=== PATIENT | female | born 1935 | race Caucasian/White ===

== ENCOUNTER 2021-01-27 22:20 | Emergency (ER) | payer MEDICARE, OTHER, SELFPAY ==
--- NOTE | ~2021-01-27 | CT_ITS ---
EXAMINATION: CT brain wo con, CT cervical spine wo con EXAM DATE: 01/27/2021 22:44 INDICATION: Multiple falls today, unsteady gait. Head injury. TECHNIQUE: Spiral CT of the head was performed without contrast. Axial, coronal and sagittal images were reviewed. Spiral CT of the cervical spine was performed without contrast. Axial images were rev iewed. Coronal and sagittal reformatted images were also reviewed. The dose-length product (DLP) fo r this examination was 681.00 (accession [id number]), 210.56 (accession [id number]) mGy-cm. The exposure was tailored according to patient size, and iterative reconstruction (ASIR) was used as additional dose reduction technique. There is no prior study for comparison. FINDINGS: HEAD CT: Mild motion artifact. There is no acute intraparenchymal hemorrhage. No evidence of intrapa renchymal brain mass lesion. No evidence of acute infarction. There is moderate to severe periventri cular and subcortical hypodensity, nonspecific but probably related to small vessel ischemic disease. There is moderate prominence of the sulci and ventricles related to cerebral atrophy. There is no mass effect or midline shift. There is no obstructive hydrocephalus suspected. There are no extra -axial collections. There are no acute calvarial fractures. Patient has had bilateral ocular lens s urgery. Soft tissue is unremarkable. The visualized sinuses and mastoid air cells are well aerated. Hyperostosis frontalis. CERVICAL CT: Advanced cervical facet arthropathy. Mild to moderate disc disease. There is no evidence of acute cervical fracture. The odontoid process is intact. Pre-dens space is normal. Prevertebra l soft tissue is normal. There are no soft tissue abnormalities identified. There is no disc space widening or traumatic vertebral body subluxation suspected. A detailed level by level evaluation of spondylosis can be added as addendum if requested. IMPRESSION: 1. No acute intracranial findings or cervical fracture. 2. Age-related intracranial findings. Reviewed, dictated and finalized at location G. CTOR OF ENROLLMENT IMPRESSION: 1. No acute intracranial findings or cervical fracture. 2. Age-related intracranial findings.
[2021-01-27 22:20] VITALS: BP 120/65; PULSE 66; RESP 18; TEMP 36.5; O2SAT 98
--- NOTE | 2021-01-27 22:23 | ECG_ITS ---
Measurements Intervals [place] Rate: 67 P: 64 [place]: 167 QRS: -42 QRSD: 94 T: 64 QT: 432 QTc: 457 Interpretive Statements SINUS RHYTHM WITH SINUS ARRHYTHMIA LEFT AXIS DEVIATION INCOMPLETE RIGHT BUNDLE BRANCH BLOCK BORDERLINE R WAVE PROGRESSION, ANTERIOR LEADS BASELINE ARTIFACT- I, II, III, AVR BORDERLINE ECG Electronically Signed On 01-28-2021 6:41:37 SCRAP CUTTER by Oscar Cabrera D.O.
--- NOTE | 2021-01-27 22:23 | ED.FALL ---
HPI - Fall General Chief Complaint: Fall Stated Complaint: UNSTEADY GAIT WITH MULTIPLE GLF Time Seen by Provider: 01/27/21 22:23 Source: patient Mode of arrival: EMS Limitations: dementia History of Present Illness HPI Narrative: Patient is an 85-year-old with a history of Alzheimer dementia, hypertension, hyperlipidemia, resides at [facility] care unit, presenting to the emergency department for evaluation of frequent falls over the past week with head injury. Staff were worried that the patient may have a urinary tract infection. Patient at the time of assessment is awake, alert, oriented to person, not to place or time. Apparently this is her baseline. Denies any reported pain. Appears pleasant and in no acute distress. Additional history limited secondary to dementia. Related Data Home Medications Medication Instructions Recorded Confirmed amlodipine 01/27/21 atorvastatin 01/27/21 clopidogrel 01/27/21 donepezil mg 01/27/21 fluorometholone drp 01/27/21 hydroxyzine HCl 25 mg PO PRN PRN 01/27/21 metoprolol succinate PO 01/27/21 quinapril mg 01/27/21 sertraline 25 mg PO DAILY 01/27/21 Allergies Allergy/AdvReac Type Severity Reaction Status Date / Time meperidine [From Demerol] Allergy Rash Verified 01/27/21 22:25 penicillin V Allergy Rash Verified 01/27/21 22:25 Review of Systems Review of Systems: ROS unobtainable: Yes unobtainable due to medical condition [facility] Social History Social History (Updated 01/27/21 @ 22:52 by Tracy Galindo MD) Alcohol intake: never Substance use: never Gender identity (if verbalized by the patient): Female Exam Narrative: GENERAL: Awake, alert, pleasant, no acute distress HEAD: Normocephalic, atraumatic. EYES: 2 + PERRLA and EOMI. ENT: Nares clear, no rhinorrhea or epistaxis. Mucous membranes moist. NECK: Supple. No grimace or reported pain with palpation of cervical spine. CHEST: No respiratory distress, breathing even and non labored. No chest wall tenderness, crepitus or ecchymoses. HEART: Regular rate, sinus rhythm ABDOMEN:Non distended, non tender EXTREMITIES: Normal range of motion. No edema. Left knee replacement incision scar, well healed. SKIN: Warm, dry, no rash. NEURO:No focal deficits. Alert and oriented x1. Moving all extremities spontaneously. No focal deficits. Course Vital Signs Vital signs: Vital Signs Temperature 36.5 C 01/27/21 22:20 Pulse Rate 66 01/27/21 22:20 Respiratory Rate 18 01/27/21 22:20 Blood Pressure 120/65 01/27/21 22:20 Pulse Oximetry 98 01/27/21 22:20 Temperature 36.5 C 01/27/21 22:20 Pulse Rate 66 01/27/21 22:20 Respiratory Rate 18 01/27/21 22:20 Blood Pressure 120/65 01/27/21 22:20 Pulse Oximetry 98 01/27/21 22:20 MDM - Fall MDM Narrative Medical decision making narrative: Patient presented for evaluation of frequent falls. Staff at the facility was concerned the patient may have an injury or infection. At the time of assessment, ABCs are intact and vital signs are stable. Patient is alert to person, which is her baseline. No focal deficits or evidence of trauma found on exam. Extremity exam is reassuring, no upper extremity injuries, no tenderness to palpation of the bilateral hips or pelvis. No acute lower extremity injuries found on exam. Obtain CT head, cervical spine which are normal without acute injury. Patient laboratory work-up is reassuring. Patient does not have significant evidence of a urinary tract infection. There is no nitrate, no significant leukocyte esterase. There is small amount of white blood cells present but given the patient's presenting symptoms I think that we can await urine culture if it were to reflex. At this point, patient does not require treatment for this urine sample. Patient was discharged back to facility in stable condition. Differential Diagnosis Differential diagnosis: Likely other (UTI, Electrolyte abnormality, Dehydration, Intr
--- NOTE | 2021-01-27 22:40 | PC.NURSE ---
Pt to CT scan via stretcher.
[2021-01-27] MEDS: SODIUM CHLORIDE 0.9% IV 1,000 ML 999 ML IV CONT (22:46)
[2021-01-27 22:54] LABS: Basophils Absolute Auto 0.1 K/mm3 (0.0-0.1); Basophils Percent Auto 0.5 % (0.2-1.2); Eosinophils Absolute Auto 0.2 K/mm3 (0-0.3); Eosinophils Percent Auto 2.5 % (0-4.4); Hematocrit 39.8 % (37.0-47.0); Hemoglobin 12.9 g/dL (12.0-15.0); Immature Granulocyte Absolute 0.04 K/mm3 (0.00-0.031); Immature Granulocyte Percent A 0.4 % (0-0.5); Lymphocytes Absolute Auto 1.05 K/mm3 (0.9-3.2); Lymphocytes Percent Auto 10.8 % (18.3-44.2); Mean Corpuscular HGB Conc 32.4 g/dl (32-36); Mean Corpuscular Hemoglobin 31.3 pg (26-34); Mean Corpuscular Volume 96.6 fl (80-100); Mean Platelet Volume 9.4 fl (7.4-10.4); Monocytes Percent Auto 10.1 % (2.6-8.5); Neutrophils Absolute Auto 7.4 K/mm3 (1.3-6.7); Neutrophils Percent Auto 75.7 % (45.5-73.1); Platelet Count Result 241 k/mm3 (150-375); Red Blood Count 4.12 M/mm3 (4.2-5.4); Red Cell Distribution Width 13.5 % (11.5-14.5); White Blood Count 9.7 K/mm3 (4.5-10.0)
[2021-01-27 23:13] LABS: Alanine Aminotransferase 22 U/L (4-35); Albumin Level 4.4 g/dL (3.5-5.1); Alkaline Phosphatase 107 U/L (38-126); Anion Gap 9 mmol/L (8-16); Aspartate Amino Transferase 34 U/L (14-36); Bilirubin,Total 1.5 mg/dL (0.2-1.3); Blood Urea Nitrogen 29 mg/dL (7-17); Calcium 9.6 mg/dL (8.4-10.2); Carbon Dioxide 26 mmol/L (22-30); Chloride 102 mmol/L (98-107); Estimated CRCL calculation 29 ml/min; Estimated Glomerular Filt Rate 33; Glucose 122 mg/dL (65-110); Potassium 4.4 mmol/L (3.4-5.0); Sodium 137 mmol/L (137-145)
[2021-01-27 23:31] LABS: Add Urine Microscopic? YES; Appearance Urine Cloudy (Clear); Bilirubin Urine Negative (Negative); Color Urine Yellow (Yellow); Glucose Urine UA Negative (Negative); Ketones Urine Negative (Negative); Leukocyte Esterase Ur Negative LEU/UL (Negative); Mucus Urine Rare /lpf; Nitrate Urine Negative (Negative); Protein Urine 1+ mg/dL (Negative); RBC Urine 21-50 /hpf (0-2); Specific Grav Ur 1.024 (1.001-1.035); Squamous Epithelial Cell Urine Few /hpf (Few); Urobilinogen Urine Negative mg/dL (<2.0)
--- NOTE | 2021-01-27 23:33 | PC.NURSE ---
Spoke to Tracy - daughter and POA on phone and discussed POC for pt. No new updates/results at this time - will keep informed.
[2021-01-27 23:38] LABS: Blood Urine Negative (Negative)
[2021-01-28 00:36] VITALS: BP 124/60; PULSE 64; RESP 16; O2SAT 95
--- NOTE | 2021-01-28 00:37 | PC.NURSE ---
SPOKE TO DAUGHTER - AMRIT/GARLAND AND GAVE FULL D/C INSTRUCTIONS AND RESULTS ON D/C PAPERWORK DUE TO PT UNABLE TO COMPREHEND. PT AWAITING EMS TO TRANSPORT BACK TO FACILITY. PT IS ALERT TO VERBAL STIMULI W/ EQUAL CHEST RISE AND FALL - ON TELE MONITOR W/ VSS AND RESTING. NO ACUTE DISTRESS NOTED. ATTEMPTED CALL TO [facility] FOR PT UPDATE REPORT AND NO ANSWER AT THIS TIME, PER WEBSITE PHONE LINE CLOSES AT 0000.
--- NOTE | 2021-01-28 01:59 | PC.NURSE ---
[facility]: CALLED AT 0157 FOR UPDATE OF ARRIVAL TIME. NEW ETA: [id number]
[2021-01-28 02:58] VITALS: BP 128/68; PULSE 81; RESP 18; O2SAT 97
== END 2021-01-28 03:52 ==
PROVIDERS: Emergency Provider Emergency Medicine; PCP Emergency Medicine
DX: S09.90XA Unspecified injury of head, initial encounter (principal); G30.9 Alzheimer's disease, unspecified; F02.80 Dementia in other diseases classified elsewhere, unspecified severity, without behavioral disturbance, psychotic disturbance, mood disturbance, and anxiety; I10 Essential (primary) hypertension; E78.5 Hyperlipidemia, unspecified; R29.6 Repeated falls; I45.10 Unspecified right bundle-branch block; R94.31 Abnormal electrocardiogram [ECG] [EKG]; W19.XXXA Unspecified fall, initial encounter; R82.998 Other abnormal findings in urine
CPT/HCPCS: 36415; 51701; 70450; 72125; 80053; 81001; 85025; 87086; 93005; 96360; 96361; 99284; J7030

== ENCOUNTER 2021-02-22 09:37 | Emergency (ER) | payer MEDICARE, OTHER, SELFPAY ==
--- NOTE | ~2021-02-22 | CT_ITS ---
EXAMINATION: CT cervical spine wo con EXAM DATE: 02/22/2021 10:55 INDICATION: Fall. Head injury. TECHNIQUE: Spiral CT of the cervical spine was performed without contrast. Axial images were reviewe d. Coronal and sagittal reformatted images cervical spine were also reviewed. The dose-length produc t (DLP) for this examination was 207.01 mGy-cm. The exposure was tailored according to patient size (auto mA exposure control), and iterative reconstruction (ASIR) was used as additional dose reduction technique. Comparison is made to prior examination from 02/01/2021. FINDINGS: Lung apices are clear. There is no evidence of acute cervical fracture. The odontoid proce ss is intact. Pre-dens space is normal. Prevertebral soft tissue is normal. There are no soft tiss ue abnormalities identified. There is no disc space widening or traumatic vertebral body subluxation suspected. Mild to moderate cervical disc disease. Moderate to severe facet arthropathy. A detaile d level by level evaluation of spondylosis can be added as addendum if requested. IMPRESSION: 1. No acute cervical fracture. 2. Cervical spondylosis unchanged. Reviewed, dictated and finalized at location A. ENT ACCESS COORDINATOR
--- NOTE | ~2021-02-22 | CT_ITS ---
EXAMINATION: CT brain wo con EXAM DATE: 02/22/2021 10:54 INDICATION: Fall, frontal head injury. TECHNIQUE: Spiral CT of the head was performed without contrast. Axial, coronal and sagittal images were reviewed. The dose-length product (DLP) for this examination was 681.00 mGy-cm. The exposure w as tailored according to patient size, and iterative reconstruction (ASIR) was used as additional dos e reduction technique. Comparison is made to prior examination from 01/27/2021. FINDINGS: There is no acute intraparenchymal hemorrhage. No evidence of intraparenchymal brain mass lesion. No evidence of acute infarction. Please note that initial head CT has limited sensitivity f or small or acute infarctions. There is moderate to severe periventricular and subcortical hypodensit y, nonspecific but probably related to small vessel ischemic disease. There is moderate to severe p rominence of the sulci and ventricles related to cerebral atrophy. There is intracranial carotid ar teriosclerosis. There are no extra-axial collections. There is no mass effect or midline shift. Ayan dorantes has had bilateral ocular lens surgery. Small right frontal, moderate sized right posterior sca lp contusion/hematomas. The visualized sinuses and mastoid air cells are well aerated. IMPRESSION: 1. No acute intracranial findings. 2. Chronic age related findings. 3. Scalp contusions/hematomas. Reviewed, dictated and finalized at location A. ARDER OPERATOR
--- NOTE | ~2021-02-22 | XR_ITS ---
EXAMINATION: XR chest 1V portable EXAM DATE: 02/22/2021 10:58 INDICATION: Fall TECHNIQUE: Portable AP frontal chest x-ray was obtained. There is no prior study for comparison. FINDINGS: There is no focal air space disease. There are no pleural effusions. The cardiothymic lala [place]ouette is normal. There is no pneumothorax. There are no osseous or soft tissue abnormalities in t his skeletally immature patient. Lungs have normal volume. There is aortic arteriosclerosis. There are left axillary surgical clips. There is 1 cm sclerotic focus in the left humeral head, probably [place]. Right upper quadrant surgical clips. IMPRESSION: Chronic chest findings as above. Reviewed, dictated and finalized at location A. NG CREW
--- NOTE | ~2021-02-22 | XR_ITS ---
EXAMINATION: XR pelvis 1-2V EXAM DATE: 02/22/2021 10:58 INDICATION: Fall. TECHNIQUE: Pelvis frontal projection(s) obtained and reviewed. There is no prior study for compariso n. FINDINGS: There are no acute pelvic fractures or dislocations identified. There is no subcutaneous g as. The soft tissue is unremarkable. There are no radiopaque foreign bodies. There is moderate b ilateral hip primary osteoarthritis. IMPRESSION: 1. Pelvis x-ray exam without acute osseous findings. Reviewed, dictated and finalized at location A. ING INSTRUCTOR
[2021-02-22 09:46] VITALS: BP 141/77; PULSE 69; RESP 18; TEMP 36.6; O2SAT 98
--- NOTE | 2021-02-22 09:48 | ED.FALL ---
HPI - Fall General Chief Complaint: Fall Stated Complaint: fall Source: RN notes reviewed History of Present Illness HPI Narrative: Patient presents emergency department from [facility] via EMS for fall. Patient with history of dementia had seen approximately 50 minutes prior to was found on the floor patient unable to give full history of what happened. Patient noted to have contusion on forehead she denies any pain at this time she is awake alert x1 denies any chest pain shortness of breath abdominal pain nausea or vomiting Related Data Home Medications Medication Instructions Recorded Confirmed amlodipine 01/27/21 atorvastatin 01/27/21 clopidogrel 01/27/21 donepezil mg 01/27/21 fluorometholone drp 01/27/21 hydroxyzine HCl 25 mg PO PRN PRN 01/27/21 metoprolol succinate PO 01/27/21 quinapril mg 01/27/21 sertraline 25 mg PO DAILY 01/27/21 atorvastatin [Lipitor] 20 mg PO 02/22/21 Allergies Allergy/AdvReac Type Severity Reaction Status Date / Time meperidine [From Demerol] Allergy Rash Verified 02/22/21 09:53 penicillin V Allergy Rash Verified 02/22/21 09:53 Review of Systems Review of Systems: Gen.: Denies fevers or chills Eyes: Denies eye pain or visual change ENT: Denies congestion Respiratory: Denies shortness of breath CV: Denies chest pain GI: Denies abdominal pain nausea, emesis Musculoskeletal: Denies back pain or muscle pain Neuro: Denies headache Skin: Denies rash Except as documented, all other systems reviewed and negative COUNTS INCLUDE 234 BEDS AT THE [facility] Past Medical History Medical History (Updated 02/22/21 @ 11:33 by Neto Stewart DO) Dementia Hypertension Social History Social History (Updated 02/22/21 @ 09:49 by Neto Stewart DO) Smoking status: Never smoker Alcohol intake: never Substance use: never Gender identity (if verbalized by the patient): Female Exam Narrative: APPEARANCE: No acute distress, nontoxic, resting in bed EYES: EOMI, PERRL HEENT: Normocephalic, area of swelling and ecchymosis over right forehead and over posterior superior scalp, no facial tenderness Neck c-collar present no midline tenderness palpation RESPIRATORY: No respiratory distress Clear to auscultation bilaterally with no rhonchi wheezing or rales. CARDIOVASCULAR: Regular rate and rhythm without murmurs rubs or gallops. ABDOMINAL: Soft, nontender, nondistended, no rebound or guarding MUSCULOSKELETAl: Moves all extremities. No clubbing, cyanosis or edema. No tenderness of the bilateral upper and lower extremities NEURO: Awake and alert x 1. Following commands, speech normal, no focal deficits SKIN:: Warm, dry. No rashes lesions or abrasions PSYCHIATRIC: Normal affect/mood, Course Course Emergency Course: Patient will get up and ambulate in ED with no difficulty Discussed with patient results of workup and diagnosis. Discussed need for follow-up with primary care, proper use of medication, and reasons to return to the emergency department. Patient understands and agrees to current treatment plan Vital Signs Vital signs: Vital Signs Temperature 97.8 F 02/22/21 09:46 Pulse Rate 69 02/22/21 09:46 Respiratory Rate 18 02/22/21 09:46 Blood Pressure 141/77 H 02/22/21 09:46 Pulse Oximetry 98 02/22/21 09:46 Temperature 97.8 F 02/22/21 09:46 Pulse Rate 69 02/22/21 09:46 Respiratory Rate 18 02/22/21 09:46 Blood Pressure 141/77 H 02/22/21 09:46 Pulse Oximetry 98 02/22/21 09:46 MDM - Fall Imaging Data Radiologist's impression: ITS Impressions Head CT 02/22/21 10:58 IMPRESSION: 1. No acute intracranial findings. 2. Chronic age related findings. 3. Scalp contusions/hematomas. Cervical Spine CT 02/22/21 10:59 IMPRESSION: 1. No acute cervical fracture. 2. Cervical spondylosis unchanged. Chest X-Ray 02/22/21 11:02 IMPRESSION: Chronic chest findings as above. Pelvis X-Ray 02/22/21 11:16 IMPRESSION: 1. Pelvis x-ray exam wit
--- NOTE | 2021-02-22 11:43 | PC.NURSE ---
Ambulated in halls without difficulty.
== END 2021-02-22 11:43 ==
PROVIDERS: Emergency Provider Emergency Medicine; PCP Nurse Practitioner Family
DX: S00.83XA Contusion of other part of head, initial encounter (principal); F03.90 Unspecified dementia, unspecified severity, without behavioral disturbance, psychotic disturbance, mood disturbance, and anxiety; I10 Essential (primary) hypertension; M47.812 Spondylosis without myelopathy or radiculopathy, cervical region; W19.XXXA Unspecified fall, initial encounter
CPT/HCPCS: 70450; 71045; 72125; 72170; 99284

== ENCOUNTER 2021-02-26 22:40 | Emergency (ER) | payer MEDICARE, OTHER, SELFPAY ==
--- NOTE | ~2021-02-26 | CT_ITS ---
EXAMINATION: CT brain wo con, CT cervical spine wo con EXAM DATE: 02/26/2021 23:33 (accession [id number]), 02/26/2021 23:34 (accession [id number]) INDICATION: Head injury. Fall. Hx Of Dementia. TECHNIQUE: Spiral CT of the head was performed without contrast. Axial, coronal and sagittal images were reviewed. Spiral CT of the cervical spine was performed without contrast. Axial images were rev iewed. Coronal and sagittal reformatted images were also reviewed. The dose-length product (DLP) fo r this examination was 681.00 mGy-cm. The exposure was tailored according to patient size, and itera tive reconstruction (ASIR) was used as additional dose reduction technique. There is no prior study for comparison. FINDINGS: HEAD CT: There is no acute intraparenchymal hemorrhage. No evidence of intraparenchymal brain mass lesion. No evidence of acute infarction. 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 There is mod erate periventricular and subcortical hypodensity, nonspecific but probably related to small vessel i schemic disease. There is moderate prominence of the sulci and ventricles related to cerebral atrop hy. There is no mass effect or midline shift. There is no obstructive hydrocephalus suspected. Th ere are no extra-axial collections. There are no acute calvarial fractures. Patient has had bilater al ocular lens surgery. There is right posterior scalp contusion, hematoma. The visualized sinuses a nd mastoid air cells are well aerated. CERVICAL CT: There is no evidence of acute cervical fracture. The odontoid process is intact. Pre- dens space is normal. Prevertebral soft tissue is normal. There are no soft tissue abnormalities id entified. There is no disc space widening or traumatic vertebral body subluxation suspected. There is advanced cervical arthropathy. A detailed level by level evaluation of spondylosis can be added a s addendum if requested. IMPRESSION: 1. No acute intracranial findings or cervical fracture. 2. Right posterior scalp contusion/hematoma. No underlying fracture. 3. Age-related intracranial findings. 4. Cervical spondylosis. Reviewed, dictated and finalized at location A. ER MARINA IMPRESSION: 1. No acute intracranial findings or cervical fracture. 2. Right posterior scalp contusion/hematoma. No underlying fracture. 3. Age-related intracranial findings. 4. Cervical spondylosis.
[2021-02-26 22:45] VITALS: TEMP 37
[2021-02-26 22:46] VITALS: BP 156/88; PULSE 84; RESP 16; O2SAT 99
--- NOTE | 2021-02-26 23:10 | ED.HEATRA ---
HPI - Head Injury General Chief complaint: Head Injury Stated complaint: fall with head injury Time Seen by Provider: 02/26/21 22:45 Source: EMS Mode of arrival: EMS Limitations: dementia History of Present Illness HPI Narrative: Patient is an 85-year-old female brought in by EMS from [facility] after a ground-level fall. According to EMS patient was walking and fell hitting her head against the wall. Denies any loss of consciousness. EMS states that patient was able to stand up and transfer to the ambulance cot. is at bedside and states that she has a history of falls and has increased over the past few weeks. Patient has dementia and unable to give any history. Related Data Home Medications Medication Instructions Recorded Confirmed amlodipine 01/27/21 atorvastatin 01/27/21 clopidogrel 01/27/21 donepezil mg 01/27/21 fluorometholone drp 01/27/21 hydroxyzine HCl 25 mg PO PRN PRN 01/27/21 metoprolol succinate PO 01/27/21 quinapril mg 01/27/21 sertraline 25 mg PO DAILY 01/27/21 atorvastatin [Lipitor] 20 mg PO 02/22/21 Allergies Allergy/AdvReac Type Severity Reaction Status Date / Time meperidine [From Demerol] Allergy Rash Verified 02/26/21 22:45 penicillin V Allergy Rash Verified 02/26/21 22:45 Review of Systems Review of Systems: ROS unobtainable: Yes other (Dementia) [facility] Past Medical History Medical History Dementia Hypertension Social History Social History Smoking status: Never smoker Alcohol intake: never Substance use: never Gender identity (if verbalized by the patient): Female Exam Const: General: healthy appearing, no acute distress, alert and confusion; No ill appearing Orientation/consciousness: oriented to person, oriented to place, oriented to time, patient oriented x3 and No confusion Limitations: other limitations (Dementia) HENMT: Ears: hearing grossly normal bilaterally, TM normal on the right and TM normal on the left General nose exam: Normal external nose present, Normal nares present and No nasal discharge present Mouth: Yes Normal oral and palatal mucosa present, Yes lip normal, Yes tongue normal and Yes oropharynx normal Throat: posterior oropharynx normal, tonsils normal and uvula midline Other: Right frontal head contusion Eyes: General: appearance normal, both eyes and all related structures Pupils: Equal, round and reactive pupils present EOM: EOMs intact bilaterally Neck: Neck: normal visual inspection, full ROM, no lymphadenopathy and no meningeal signs Chest: Chest palpation & inspection: normal inspection of the chest Resp: Effort & Inspection: normal respiratory effort, able to speak in complete sentences, no respiratory distress and not tachypneic Auscultation: clear to auscultation bilaterally, no crackles, no rales, no rhonchi and no wheezes Cardio: Rate: regular rate Rhythm: regular rhythm GI: Inspection: normal to inspection GI Palp: No abdominal tenderness, Yes Soft to palpation, No Tenderness to palpation present (GI), No Guarding due to palpation present (GI), No Rigid due to palpation and No Rebound tenderness present Auscultation: normal bowel sounds : General: Yes no CVA tenderness Back/Spine/Pelvis: Back: no CVA tenderness Skin: General skin exam: normal color, no rashes or lesions noted, elasticity normal and turgor normal Neuro: General: tone normal, moves all extremities, Normal light touch and pain sensation, no meningeal signs, no focal motor deficits and CN's II-XI intact bilaterally Cranial nerves: Yes Equal, round and reactive pupils present Speech: No Abnormal speech present Sensory Exam: No Sensory deficit (Neuro) Extrem: General: normal to inspection, full ROM and capillary refill normal Psych: Appearance: grossly normal and well kempt Speech and movement: Normal speech and movement pre
[2021-02-27 01:15] VITALS: PULSE 83; RESP 18; O2SAT 98
== END 2021-02-27 01:16 ==
PROVIDERS: Emergency Provider Emergency Medicine; PCP Nurse Practitioner Family
DX: S09.90XA Unspecified injury of head, initial encounter (principal); F03.90 Unspecified dementia, unspecified severity, without behavioral disturbance, psychotic disturbance, mood disturbance, and anxiety; I10 Essential (primary) hypertension; W01.198A Fall on same level from slipping, tripping and stumbling with subsequent striking against other object, initial encounter
CPT/HCPCS: 70450; 72125; 99284

== ENCOUNTER 2021-02-27 22:31 | Emergency (ER) | payer MEDICARE, OTHER, SELFPAY ==
--- NOTE | ~2021-02-27 | XR_ITS ---
EXAMINATION: XR shoulder RT min 2V EXAM DATE: 02/27/2021 23:07 INDICATION: pain status post fall . Initial encounter. TECHNIQUE: The following right shoulder projections obtained: frontal projection with internal rotati on, frontal projection with external rotation, Grashey, and scapular Y view (4+ views). There is no prior study for comparison. FINDINGS: No evidence of right shoulder rotator cuff calcific tendinosis. There is mild glenohume ral joint, moderate acromioclavicular joint primary osteoarthritis. There are no acute fractures or d islocations identified. There is no subcutaneous gas. The soft tissue is unremarkable. There are no radiopaque foreign bodies. IMPRESSION: 1. XR shoulder RT min 2V exam without acute osseous findings. Reviewed, dictated and finalized at location G. OMIC DEVELOPER
--- NOTE | ~2021-02-27 | CT_ITS ---
EXAMINATION: CT brain wo con, CT cervical spine wo con EXAM DATE: 02/27/2021 23:16 INDICATION: Multiple falls, head injury. TECHNIQUE: Spiral CT of the head was performed without contrast. Axial, coronal and sagittal images were reviewed. Spiral CT of the cervical spine was performed without contrast. Axial images were rev iewed. Coronal and sagittal reformatted images were also reviewed. The dose-length product (DLP) fo r this examination was 605.33 (accession [id number]), 173.19 (accession [id number]) mGy-cm. The exposure was tailored according to patient size, and iterative reconstruction (ASIR) was used as additional dose reduction technique. Comparison is made to prior examination from 02/26/2021 (yesterday ). FINDINGS: HEAD CT: There is no acute intraparenchymal hemorrhage. No evidence of intraparenchymal brain mass lesion. No evidence of acute infarction. 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 There is mod erate to severe periventricular and subcortical hypodensity, nonspecific but probably related to smal l vessel ischemic disease. There is moderate prominence of the sulci and ventricles related to cere bral atrophy. There is no mass effect or midline shift. There is no obstructive hydrocephalus susp ected. There are no extra-axial collections. There are no acute calvarial fractures. Patient has h ad bilateral ocular lens surgery. There is right posterior scalp contusion, hematoma. The visualized sinuses and mastoid air cells are well aerated. CERVICAL CT: There is no evidence of acute cervical fracture. The odontoid process is intact. Pre- dens space is normal. Prevertebral soft tissue is normal. There are no soft tissue abnormalities id entified. There is no disc space widening or traumatic vertebral body subluxation suspected. There is advanced cervical arthropathy. A detailed level by level evaluation of spondylosis can be added a s addendum if requested. IMPRESSION: 1. No acute intracranial findings, cervical fracture, or interval change compared to yesterday. 2. Right posterior scalp contusion/hematoma. No underlying fracture. 3. Age-related intracranial findings. 4. Cervical spondylosis. Reviewed, dictated and finalized at location [facility]. BUSTER IMPRESSION: 1. No acute intracranial findings, cervical fracture, or interval change amanuel red to yesterday. 2. Right posterior scalp contusion/hematoma. No underlying fracture. 3. Age-related intracranial findings. 4. Cervical spondylosis.
--- NOTE | ~2021-02-27 | XR_ITS ---
EXAMINATION: XR chest 1V portable EXAM DATE: 02/27/2021 23:07 INDICATION: Cough. TECHNIQUE: Portable AP frontal chest x-ray was obtained. Comparison is made to prior examination from 02/22/2021. FINDINGS: Linear basilar opacities again noted, most consistent with subsegmental atelectasis or scar ring. No evidence of superimposed acute airspace disease. Left axillary surgical clips. There are bon y degenerative changes. There is aortic arteriosclerosis. IMPRESSION: Left basilar linear opacities most consistent with subsegmental scarring or atelectasis. Reviewed, dictated and finalized at location . GRADER IMPRESSION: Left basilar linear opacities most consistent with subsegmental sc arring or atelectasis.
--- NOTE | ~2021-02-27 | XR_ITS ---
EXAMINATION: XR shoulder LT min 2V EXAM DATE: 02/27/2021 23:07 INDICATION: pain status post fall . Initial encounter. TECHNIQUE: The following right shoulder projections obtained: frontal projection with internal rotati on, frontal projection with external rotation, Grashey, and scapular Y view (4+ views). There is no prior study for comparison. FINDINGS: No evidence of right shoulder rotator cuff calcific tendinosis. There is mild glenohumer al joint, moderate acromioclavicular joint primary osteoarthritis. Left humeral bone island. There a re no acute fractures or dislocations identified. There is no subcutaneous gas. The soft tissue is unremarkable. Left axillary surgical clips. IMPRESSION: 1. XR shoulder LT min 2V exam without acute osseous findings. Reviewed, dictated and finalized at location . [employer]
[2021-02-27 22:31] VITALS: BP 170/76; PULSE 85; RESP 17; TEMP 36.9; O2SAT 100
--- NOTE | 2021-02-27 22:39 | ECG_ITS ---
Measurements Intervals [place] Rate: 76 P: 155 GA: 145 QRS: -27 QRSD: 102 T: 142 QT: 384 QTc: 432 Interpretive Statements SINUS OR ECTOPIC ATRIAL RHYTHM BORDERLINE R WAVE PROGRESSION, ANTERIOR LEADS NONSPECIFIC ST & T-WAVE ABNORMALITY- INF/HIGH LAT LEADS BASELINE ARTIFACT- I, II, III, AVR, AVL, AVF, V1-V6 BORDERLINE ECG Electronically Signed On 02-28-2021 6:29:57 ELECTRONIC BENCH TECHNICIAN by Oscar Cabrera D.O.
--- NOTE | 2021-02-27 22:59 | PC.NURSE ---
pt to XRAY and CT scan via stretcher at this time, daughter/POA at bedside
[2021-02-27 23:28] LABS: Basophils Absolute Auto 0.1 K/mm3 (0.0-0.1); Basophils Percent Auto 0.9 % (0.2-1.2); Eosinophils Absolute Auto 0.3 K/mm3 (0-0.3); Eosinophils Percent Auto 3.5 % (0-4.4); Hematocrit 35.2 % (37.0-47.0); Hemoglobin 11.4 g/dL (12.0-15.0); Immature Granulocyte Absolute 0.03 K/mm3 (0.00-0.031); Immature Granulocyte Percent A 0.4 % (0-0.5); Lymphocytes Absolute Auto 1.48 K/mm3 (0.9-3.2); Lymphocytes Percent Auto 18.5 % (18.3-44.2); Mean Corpuscular HGB Conc 32.4 g/dl (32-36); Mean Corpuscular Hemoglobin 31.1 pg (26-34); Mean Corpuscular Volume 96.2 fl (80-100); Mean Platelet Volume 9.2 fl (7.4-10.4); Monocytes Absolute Auto 1.4 K/mm3 (0.1-0.6); Neutrophils Absolute Auto 4.7 K/mm3 (1.3-6.7); Neutrophils Percent Auto 58.7 % (45.5-73.1); Platelet Count Result 201 k/mm3 (150-375); Red Blood Count 3.66 M/mm3 (4.2-5.4); Red Cell Distribution Width 14.4 % (11.5-14.5)
[2021-02-27 23:41] LABS: Alanine Aminotransferase 27 U/L (4-35); Albumin Level 3.7 g/dL (3.5-5.1); Alkaline Phosphatase 52 U/L (38-126); Anion Gap 6 mmol/L (8-16); Aspartate Amino Transferase 33 U/L (14-36); Bilirubin,Total 0.9 mg/dL (0.2-1.3); Blood Urea Nitrogen 21 mg/dL (7-17); Calcium 9.1 mg/dL (8.4-10.2); Carbon Dioxide 27 mmol/L (22-30); Chloride 102 mmol/L (98-107); Estimated CRCL calculation 44 ml/min; Estimated Glomerular Filt Rate 60; Glucose 99 mg/dL (65-110); Potassium 3.9 mmol/L (3.4-5.0); Sodium 135 mmol/L (137-145)
[2021-02-27 23:46] LABS: Add Urine Microscopic? NO; Appearance Urine Clear (Clear); Bilirubin Urine Negative (Negative); Blood Urine Negative (Negative); Color Urine Yellow (Yellow); Glucose Urine UA Negative (Negative); Ketones Urine Negative (Negative); Leukocyte Esterase Ur Negative LEU/UL (Negative); Nitrate Urine Negative (Negative); Protein Urine Negative (Negative); Specific Grav Ur 1.017 (1.001-1.035); Urobilinogen Urine Negative mg/dL (<2.0)
[2021-02-28 00:04] VITALS: BP 167/74; PULSE 80; RESP 19; O2SAT 97
--- NOTE | 2021-02-28 00:04 | ED.GENADULT ---
HPI - General Adult General Chief complaint: Fall Stated complaint: unwitnessed fall, head injury Time Seen by Provider: 02/27/21 22:38 Limitations: dementia History of Present Illness HPI narrative: Patient 85-year-old female presents the emergency department with complaint of fall. Patient has been seen multiple times in the emergency department after frequent falls this week. Patient had an unwitnessed fall at the facility where she lives at and has history of dementia also the family has been discussing with the facility about entering the into hospice care. The patient states she is unsure of what happened and is unable to provide history due to dementia Related Data Home Medications Medication Instructions Recorded Confirmed amlodipine 01/27/21 atorvastatin 01/27/21 clopidogrel 01/27/21 donepezil mg 01/27/21 fluorometholone drp 01/27/21 hydroxyzine HCl 25 mg PO PRN PRN 01/27/21 metoprolol succinate PO 01/27/21 quinapril mg 01/27/21 sertraline 25 mg PO DAILY 01/27/21 atorvastatin [Lipitor] 20 mg PO 02/22/21 Allergies Allergy/AdvReac Type Severity Reaction Status Date / Time meperidine [From Demerol] Allergy Rash Verified 02/26/21 22:45 penicillin V Allergy Rash Verified 02/26/21 22:45 Review of Systems Review of Systems: A 10 system review of systems was completed on the patient and is negative except for what is stated in the HPI. Nursing and ancillary documentation was reviewed. PMFSH Past Medical History Medical History Dementia Hypertension Social History Social History Smoking status: Never smoker Alcohol intake: never Substance use: never Gender identity (if verbalized by the patient): Female Exam Narrative: GENERAL: Well-appearing, well-nourished, and in no acute distress. HEAD: Normocephalic, there is a contusion in the occipital region of the scalp and also in the forehead. EYES: PERRLA and EOMI. ENT: Nares clear, no rhinorrhea or epistaxis. Mucous membranes moist. NECK: Supple. CHEST: Clear to auscultation. No respiratory distress. HEART: Regular rate and rhythm. No murmur heard. Normal peripheral pulses. ABDOMEN: Soft, nontender, nondistended, normal active bowel sounds. EXTREMITIES: Normal range of motion. No edema. There are contusions to bilateral shoulders SKIN: Warm, dry, no rash. NEURO: No focal deficits. Alert pleasantly confused. PSYCH: Normal mood and affect. Course Course Emergency Course: Imaging shows no evidence of acute fracture or hemorrhage Metabolic work-up and infectious work-up shows no evidence of acute findings. Patient will be discharged back to the skilled nursing. Vital Signs Vital signs: Vital Signs Temperature 36.9 C 02/27/21 22:31 Pulse Rate 85 02/27/21 22:31 Respiratory Rate 17 02/27/21 22:31 Blood Pressure 170/76 H 02/27/21 22:31 Pulse Oximetry 100 02/27/21 22:31 Temperature 36.9 C 02/27/21 22:31 Pulse Rate 85 02/27/21 22:31 Respiratory Rate 17 02/27/21 22:31 Blood Pressure 170/76 H 02/27/21 22:31 Pulse Oximetry 100 02/27/21 22:31 Medical Decision Making Vital Signs Vital Signs: Vital Signs Temperature 36.9 C 02/27/21 22:31 Pulse Rate 85 02/27/21 22:31 Respiratory Rate 17 02/27/21 22:31 Blood Pressure 170/76 H 02/27/21 22:31 Pulse Oximetry 100 02/27/21 22:31 Temperature 36.9 C 02/27/21 22:31 Pulse Rate 85 02/27/21 22:31 Respiratory Rate 17 02/27/21 22:31 Blood Pressure 170/76 H 02/27/21 22:31 Pulse Oximetry 100 02/27/21 22:31 Lab Data Result diagrams: 02/27/21 23:22 02/27/21 23:22 Labs: Lab Results 02/27/21 02/27/21 02/27/21 Range/Units 23:22 23:22 23:32 WBC 8.0 (4.5-10.0) K/mm3 RBC 3.66 L (4.2-5.4) M/mm3 Hgb 11.4 L (12.0-15.0) g/dL Hct 35.2 L (37.0-47.0) % [facility]
[2021-02-28] MEDS: ACETAMINOPHEN 325 MG TABLET 650 MG PO (00:07)
[2021-02-28] MEDS: LORazepam INJ (*CRX) 2 MG/ML VIAL (00:33)
--- NOTE | 2021-02-28 00:34 | PC.NURSE ---
Pt increasingly agitated and hitting, grabbing, kicking staff, pt constantly trying to crawl out of bed. Unable to ride in car w/ daughter at bedside. Pt not able to swallow PO ativan as RX'd by Dr Medina. EDP gave VORB for 1MG Ativan IM. Admin into LEFT ventrogluteal. Staff x3 at bedside to calm pt and dress pt. Daughter remains at bedside. Pt dressed, lights dimmed. Sitter at bedside at this time. Awaiting EMS, aprox arrival 0230.
[2021-02-28 01:00] VITALS: BP 154/76; PULSE 78; RESP 18; O2SAT 100
--- NOTE | 2021-02-28 01:17 | PC.NURSE ---
Per EDP Dr Medina, discussed placing pt in car w/ assist and returning to NH via POV (daughter POA at bedside agrees and assumes risk of pt). Pt assisted by team of 5 (2 RNs, 2 ED techs, pt daughter) via w/c into car.
== END 2021-02-28 01:22 ==
PROVIDERS: Emergency Provider Emergency Medicine; PCP Nurse Practitioner Family
DX: S00.03XA Contusion of scalp, initial encounter (principal); S00.83XA Contusion of other part of head, initial encounter; S40.012A Contusion of left shoulder, initial encounter; S40.011A Contusion of right shoulder, initial encounter; F03.90 Unspecified dementia, unspecified severity, without behavioral disturbance, psychotic disturbance, mood disturbance, and anxiety; I10 Essential (primary) hypertension; R94.31 Abnormal electrocardiogram [ECG] [EKG]; M47.812 Spondylosis without myelopathy or radiculopathy, cervical region; W19.XXXA Unspecified fall, initial encounter
CPT/HCPCS: 36415; 51701; 70450; 71045; 72125; 73030; 80053; 81003; 85025; 93005; 96374; 99284; A9270; J2060

== ENCOUNTER 2021-03-22 20:29 | Emergency (ER) | payer MEDICARE, OTHER, SELFPAY ==
--- NOTE | ~2021-03-22 | CT_ITS ---
EXAMINATION: CT brain wo con DATE: 03/22/2021 21:09 INDICATION: Fall. Left posterior scalp laceration and hematoma TECHNIQUE: Computed tomography (CT) of the head was performed without intravenous contrast. The mA wa s adjusted according to patient size. Iterative reconstruction technique was employed. Exam dose: 60 5.33 mGy-cm total exam DLP. COMPARISON: 02/27/2021 CT brain FINDINGS: There are some skin sutures along the posterior left occipital scalp, with underlying cepha lohematoma in this location. No underlying skull fracture is noted. No coup or contrecoup intracrania l injury is evident. Prominent bilateral vertebral artery calcifications, basilar artery calcification and prominent bilat eral carotid siphon internal carotid artery calcifications are noted. There is nonspecific prominent patchy diminished attenuation of the subcortical and periventricular c erebral white matter, most likely due to chronic small vessel ischemic changes. No intracranial mass lesion or hemorrhage, midline shift or mass effect is evident. No subdural or epidural hematoma is detected. There is bilateral hyperostosis frontalis interna, not likely of any clinical significance. No skull fracture or bone destruction is evident. The included paranasal sinuses are unremarkable. IMPRESSION: Left occipital cephalohematoma and laceration with skin sutures No underlying skull fracture or acute intracranial finding Reviewed, dictated and finalized at [facility]. Reviewed, dictated and finalized at location [facility]. TOR TAX
--- NOTE | ~2021-03-22 | CT_ITS ---
EXAMINATION: CT cervical spine wo con DATE: 03/22/2021 21:10 INDICATION: Fall. Head and neck injury. Posterior scalp laceration and hematoma. TECHNIQUE: Computed tomography (CT) of the cervical spine was performed without intravenous contrast. Automated exposure control and iterative reconstruction technique were employed. Exam dose: 153.29 mGy-cm total exam DLP. COMPARISON: 02/27/2021 CT cervical spine FINDINGS: C1 and C2 are normally aligned and the odontoid process is intact. No fracture or dislocation or locked facet. There is moderate degenerative disc disease of the cervical spine. Is minimal anterolisthesis at C5-6 and C6-7. There is very prominent degenerative change at the apophyseal joints throughout the cervic al spine, with ankylosis at the C2-3 apophyseal joints. IMPRESSION: Extensive degenerative changes; no fracture or dislocation Reviewed, dictated and finalized at [facility]. Reviewed, dictated and finalized at location [facility]. AD DRAWER
[2021-03-22 20:32] VITALS: RESP 18
[2021-03-22 20:43] VITALS: BP 157/83; PULSE 63; TEMP 36.9; O2SAT 100
--- NOTE | 2021-03-22 21:03 | ED.FALL ---
HPI - Fall General Chief Complaint: Fall Stated Complaint: fall with lac and hematoma to back of head Time Seen by Provider: 03/22/21 20:39 Source: family, EMS and RN notes reviewed Mode of arrival: EMS Limitations: dementia History of Present Illness HPI Narrative: Patient had a ground fall, striking the back of her head on a shelf in the way down to the floor. No loss of consciousness, patient came from [facility], currently patient is hospice. Does not take blood thinners. Related Data Home Medications Medication Instructions Recorded Confirmed amlodipine 01/27/21 atorvastatin 01/27/21 clopidogrel 01/27/21 donepezil mg 01/27/21 fluorometholone drp 01/27/21 hydroxyzine HCl 25 mg PO PRN PRN 01/27/21 metoprolol succinate PO 01/27/21 quinapril mg 01/27/21 sertraline 25 mg PO DAILY 01/27/21 atorvastatin [Lipitor] 20 mg PO 02/22/21 Allergies Allergy/AdvReac Type Severity Reaction Status Date / Time meperidine [From Demerol] Allergy Rash Verified 02/26/21 22:45 penicillin V Allergy Rash Verified 02/26/21 22:45 Review of Systems Review of Systems: ROS unobtainable: Yes unobtainable due to mental status PMFSH Past Medical History Medical History Dementia Hypertension Social History Social History Smoking status: Never smoker Alcohol intake: never Substance use: never Gender identity (if verbalized by the patient): Female Exam Narrative: General appearance: Well-developed, well-nourished Skin: Normal color Head: Normocephalic, 4 cm occipital laceration Eyes: Clear conjunctiva ENT: Oropharynx normal, ears normal, nose normal Neck: Supple, nontender Chest and respiratory: Airway patent, no respiratory distress, no accessory muscle use Heart: Regular rate/rhythm Musculoskeletal: Normal range of motion, nontender back Neurologic: Alert and oriented to her name only Course Course Emergency Course: Stable Vital Signs Vital signs: Vital Signs Respiratory Rate 18 03/22/21 20:32 Temperature 36.9 C 03/22/21 20:43 Pulse Rate 63 03/22/21 20:43 Respiratory Rate 18 03/22/21 20:32 Blood Pressure 157/83 H 03/22/21 20:43 Pulse Oximetry 100 03/22/21 20:43 Procedures Laceration Laceration 1: Date: 03/22/21 Time: 21:07 Site: scalp Size (cm): 4 Description: flap and clean Depth: simple, single layer Local Anesthetic: none Pre-repair: wound explored ====== Skin Level ====== Skin layer closed with: darline (4 darline) ====== Subcutaneous Layer ====== ====== Muscle Layer ====== ====== Tendon Layer ====== MDM - Fall MDM Narrative Medical decision making narrative: Patient is hospice, hospice nurse requested no blood work-up or imagings, just wound repair and send patient back to [facility] Imaging Data Radiologist's impression: Impressions Head CT 03/22/21 21:18 IMPRESSION: Left occipital cephalohematoma and laceration with skin sutures No underlying skull fracture or acute intracranial finding Cervical Spine CT 03/22/21 21:22 IMPRESSION: Extensive degenerative changes; no fracture or dislocation Critical Care Time Critical Care Time Critical Care Time: No Discharge Plan Discharge Clinical Impression: Fall Qualifiers: Encounter type: initial encounter Qualified Code(s): W19.XXXA - Unspecified fall, initial encounter Laceration of scalp Qualifiers: Encounter type: subsequent encounter Qualified Code(s): S01.01XD - Laceration without foreig
[2021-03-22] MEDS: TETANUS,DIPHTHERIA,AC PERTUSSIS ADULT (0.5 ML) BOOSTRIX IM (21:26)
[2021-03-22] MEDS: ACETAMINOPHEN ELIXIR 325 MG/10.15 ML UDC 650 MG PO (22:08)
--- NOTE | 2021-03-22 22:19 | PC.NURSE ---
called [facility] to request transport [id number]
--- NOTE | 2021-03-22 23:50 | PC.NURSE ---
[facility] here.
[2021-03-23 00:12] VITALS: PULSE 87; RESP 18; O2SAT 98
== END 2021-03-23 00:15 | disposition hospice, home (50) ==
PROVIDERS: Emergency Provider Emergency Medicine; PCP Nurse Practitioner Family
DX: S01.01XA Laceration without foreign body of scalp, initial encounter (principal); F03.90 Unspecified dementia, unspecified severity, without behavioral disturbance, psychotic disturbance, mood disturbance, and anxiety; I10 Essential (primary) hypertension; Z23 Encounter for immunization; W01.198A Fall on same level from slipping, tripping and stumbling with subsequent striking against other object, initial encounter
CPT/HCPCS: 12002; 70450; 72125; 90471; 90715; 99284; A9270